=== PATIENT | female | born 1995 | race Caucasian/White ===

== ENCOUNTER 2017-08-04 14:27 | Emergency (ER) | payer MEDICAID ==
[~2017-08-04] VITALS: Ht 165.1 cm; Wt 85.7 kg
[2017-08-04 14:42] VITALS: Ht 165.1 cm; Wt 85.7 kg
[2017-08-04 16:01] VITALS: BP 132/74
== END 2017-08-04 16:01 | disposition home or self-care (01) ==
LOC: ED 14:27
DX: K59.00 Constipation, unspecified (principal); K60.2 Anal fissure, unspecified